=== PATIENT | male | born 1995 | race Two or more races ===

== ENCOUNTER 2024-07-14 06:07 | Day surgery (SDC) | payer OTHER ==
[2024-07-04 12:22] LABS: URINE APPEARANCE Clear; URINE BILIRRUBIN Negative (NEGATIVE); URINE BLOOD Negative; URINE COLOR Yellow; URINE GLUCOSE Negative (NEGATIVE); URINE KETONE Negative (NEGATIVE); URINE LEUKOCYTE Negative; URINE NITRATE Negative; URINE PROTEIN Negative (NEGATIVE); URINE UROBILINOGEN 0.2 E.U./dl
[2024-07-04 12:23] LABS: URINE BACTERIA 13.4 uL (0.0-1933); URINE EPITHELIAL CELLS 3.6 uL (0.0-38.8); URINE RBC 4.8 uL (0.0-20.8); URINE WBC 4.9 uL (0.0-23.2)
[2024-07-04 12:26] LABS: URINE CAST 0.44 uL (0.0-1.40)
[2024-07-04 12:45] LABS: INR 1.01; PARTIAL THROMBOPLASTIN TIME 31.6 SECONDS (22.0-34.0)
[2024-07-04 12:52] LABS: HEMATOCRIT 45.5 % (39.0-48.0); HEMOGLOBIN 15.7 g/dL (13-16.00); MEAN CORPUSCULAR HEMOGLOBIN 29.7 pg (27.00-32.0); MEAN CORPUSCULAR HGB CONC 34.6 g/dl (32.0-36.0); PLATELET COUNT 321 K/uL (150-450); RED BLOOD COUNT 5.29 M/uL (4.00-6.00); RED CELL DISTRIBUTION WIDTH 12.8 % (11.5-14.5)
[2024-07-04 13:33] LABS: ALBUMIN 4.3 gm/dL (3.4-5.0); BILIRUBIN TOTAL 0.72 mg/dL (0.3-1.2); CALCIUM 9.8 mg/dL (8.5-10.1); CREATININE SERUM 1.03 mg/dL (0.70-1.30); GFR 85.38; POTASSIUM 4.7 mEq/L (3.5-5.1); TOTAL PROTEIN 7.3 gm/dL (6.4-8.2)
[2024-07-14] MEDS ORDERED: HEMOSTATIC MATRIX 1 KIT KIT TOP ONE (10:28)
[2024-07-14] MEDS ORDERED: POVIDONE-IODINE 118 ML BOTT TOP ONE (10:28)
[2024-07-14] MEDS ORDERED: DIBUCAINE 30 GM TUBE ONE (10:28)
[2024-07-14] MEDS ORDERED: METRONIDAZOLE/SODIUM CHLORIDE 500 MG/100 ML PIGGYBACK IV ONE (10:28)
[2024-07-14] MEDS ORDERED: HYDROGEN PEROXIDE 473 ML BOTTLE TOP ONE (10:47)
[2024-07-14] MEDS ORDERED: TAMSULOSIN HCL 0.4 MG CAP PO ONE ×2 (14:25→14:30)
== END 2024-07-14 16:10 | disposition home or self-care (01) ==
LOC: CIR.AMB 06:07
PROVIDERS: ATTEND Colon & Rectal Surgery
DX: K60.322 Anal fistula, complex, persistent (principal)

== ENCOUNTER 2024-09-22 05:15 | Day surgery (SDC) | payer OTHER ==
[2024-09-22] MEDS ORDERED: CEFTRIAXONE SODIUM 2,000 MG VIAL IV ONE (08:30)
[2024-09-22] MEDS ORDERED: POVIDONE-IODINE 118 ML BOTT TOP ONE (08:30)
[2024-09-22] MEDS ORDERED: HEMOSTATIC MATRIX 1 KIT KIT TOP ONE (08:30)
[2024-09-22] MEDS ORDERED: METRONIDAZOLE/SODIUM CHLORIDE 500 MG/100 ML PIGGYBACK IV ONE (08:30)
[2024-09-22] MEDS ORDERED: BUPIVACAINE HCL 30 ML VIAL IJ ONE (08:30)
[2024-09-22] MEDS ORDERED: HYDROGEN PEROXIDE 118 ML SOLUTION TOP ONE (08:30)
[2024-09-22] MEDS ORDERED: LIDOCAINE HCL 2%/EPINEPHRINE 20ML VIAL IJ ONE (08:30)
== END 2024-09-22 13:05 | disposition home or self-care (01) ==
LOC: CIR.AMB 05:15
PROVIDERS: ATTEND Colon & Rectal Surgery
DX: K60.322 Anal fistula, complex, persistent (principal); L92.9 Granulomatous disorder of the skin and subcutaneous tissue, unspecified

== ENCOUNTER 2025-02-09 08:00 | Day surgery (SDC) | payer OTHER ==
[2025-02-06 13:00] VITALS: BP 118/77
[2025-02-06 13:13] LABS: BASO % 0.5 % (0.1-1.2); EOS # 0.02 (0.04-0.54); EOS % 0.2 % (0.7-7.0); LYMPH # 2.86 (1.18-3.74); LYMPH % 35.2 % (19.3-53.1); MEAN PLATELET VOLUME 8.90 fl (9.4-12.4); MONO # 0.47 (0.24-0.82); MONO % 5.8 % (4.7-12.5); NEUT # 4.67 (1.56-6.13); NEUT % 57.4 % (34.0-71.1); RED CELL DISTRIBUTION WIDTH 12.3 % (11.6-14.4)
[2025-02-06 13:16] LABS: URINE APPEARANCE Clear; URINE BILIRRUBIN Negative (NEGATIVE); URINE BLOOD Negative; URINE COLOR Yellow; URINE GLUCOSE Negative (NEGATIVE); URINE KETONE Trace (NEGATIVE); URINE LEUKOCYTE Negative; URINE NITRATE Negative; URINE PROTEIN 30 (NEGATIVE); URINE UROBILINOGEN 1.0 E.U./dl
[2025-02-06 13:19] LABS: URINE BACTERIA 11.9 uL (0.0-1933); URINE EPITHELIAL CELLS 3.5 uL (0.0-38.8); URINE RBC 4.8 uL (0.0-20.8); URINE WBC 4.1 uL (0.0-23.2)
[2025-02-06 13:26] LABS: URINE CAST 0.29 uL (0.0-1.40)
[2025-02-06 13:47] LABS: INR 1.03
[2025-02-06 13:53] LABS: ALT/SGPT 28.0 U/L (12-78); AST/SGOT 11.0 U/L (15-37); BILIRUBIN TOTAL 0.5 mg/dL (0.3-1.2); BUN CREA RATIO 11.0 (7.0-25.0); CREATININE SERUM 0.96 mg/dL (0.70-1.30); GFR 91.97; GLOBULINA 3.5 G/DL (2.4-3.5); GLUCOSE FASTING 103.0 mg/dL (65-100); OSMOLALITY SERUM 286.0 MOSM/KG (275-295)
[~2025-02-09] VITALS: Ht 175.3 cm; Wt 88.5 kg
[2025-02-09] MEDS ORDERED: CEFTRIAXONE SODIUM 2,000 MG VIAL ONE (08:44)
[2025-02-09] MEDS ORDERED: METRONIDAZOLE/SODIUM CHLORIDE 500 MG/100 ML PIGGYBACK IV ONE (08:44)
[2025-02-09] MEDS ORDERED: DIBUCAINE 30 GM TUBE ONE (08:59)
[2025-02-09] MEDS ORDERED: BUPIVACAINE HCL/MPF 0.5% 30ML VIAL ONE (08:59)
[2025-02-09] MEDS ORDERED: POVIDONE-IODINE 118 ML BOTT TOP ONE (08:59)
[2025-02-09] MEDS ORDERED: HEMOSTATIC MATRIX 1 KIT KIT TOP ONE (08:59)
[2025-02-09] MEDS ORDERED: LIDOCAINE HCL 1%/EPINEPHRINE 20ML VIAL IJ ONE (09:00)
== END 2025-02-09 14:20 | disposition home or self-care (01) ==
LOC: CIR.AMB 08:00
PROVIDERS: ATTEND Colon & Rectal Surgery
DX: K60.323 Anal fistula, complex, recurrent (principal)